=== PATIENT | female | born 1980 | race African-American/Black ===

== ENCOUNTER 2021-05-11 14:24 | Outpatient (RCR) | payer OTHER, SELFPAY | END 2021-08-10 12:18 | disposition home or self-care (01) | LOC: HO.WCC 14:24 | PROVIDERS: PCP Family Medicine; Visit Provider Surgery | DX: T81.31XA Disruption of external operation (surgical) wound, not elsewhere classified, initial encounter (principal); L97.312 Non-pressure chronic ulcer of right ankle with fat layer exposed; Z79.899 Other long term (current) drug therapy | CPT/HCPCS: 11042; 15271; 15275; 99212; Q4187 ==